=== PATIENT | female | born 1990 | race Caucasian/White ===

== ENCOUNTER 2022-01-27 21:56 | Emergency (ER) | payer SELFPAY ==
[2022-01-27 22:38] VITALS: BP 120/83; PULSE 122
[2022-01-27] MEDS ORDERED: levETIRAcetam 1,000 MG in Sodium Chloride 0.9% 100 ML IV STA (22:57)
[2022-01-27] MEDS ORDERED: Sodium Chloride 0.9% 1,000 ML IV ONE (23:00)
[2022-01-28] MEDS ORDERED: LORazepam 2 MG/ML SDV ONE (00:23)
[2022-01-28] MEDS ORDERED: levETIRAcetam 500 MG in Sodium Chloride 0.9% 100 ML IV STA (00:23)
[2022-01-28] MEDS ORDERED: LORazepam 2 MG/ML SDV IVPUSH STA (00:23)
== END 2022-01-28 08:40 | disposition home or self-care (01) ==
LOC: JD.ED 21:56
DX: R56.9 Unspecified convulsions (principal); E83.42 Hypomagnesemia; F10.129 Alcohol abuse with intoxication, unspecified; F17.210 Nicotine dependence, cigarettes, uncomplicated; Z79.899 Other long term (current) drug therapy
CPT/HCPCS: 36415; 70450; 80053; 80306; 80307; 82550; 83735; 84100; 85025; 96365; 96366; 96367; 96375; 99285; J1953; J2060; J3360; J3475; J7030; 99284

== ENCOUNTER 2022-04-02 23:37 | Emergency (ER) | payer SELFPAY ==
[2022-04-02 23:48] VITALS: BP 142/79; PULSE 128
[2022-04-03] MEDS ORDERED: Acetaminophen/HYDROcodone 325-5 MG Tab PO ONE (00:56)
== END 2022-04-03 01:03 ==
LOC: JD.ED 23:37
DX: F10.129 Alcohol abuse with intoxication, unspecified (principal); Z02.89 Encounter for other administrative examinations; Z79.899 Other long term (current) drug therapy
CPT/HCPCS: 99284